=== PATIENT | female | born 1950 | race Caucasian/White ===

== ENCOUNTER → 2023-05-05 12:52 | Outpatient (REF) | payer OTHER, SELFPAY | LOC: DHCBC MAIN 12:52 | PROVIDERS: ATTENDING PHYSICIAN Internal Medicine Cardiovascular Disease; FAMILY PHYSICIAN Family Medicine | DX: R07.89 Other chest pain (principal); I25.84 Coronary atherosclerosis due to calcified coronary lesion; I77.1 Stricture of artery; R09.89 Other specified symptoms and signs involving the circulatory and respiratory systems | CPT/HCPCS: 93306 ==

== ENCOUNTER → 2023-05-17 09:50 | Outpatient (REF) | payer OTHER, SELFPAY | LOC: RAD 09:50 | PROVIDERS: ATTENDING PHYSICIAN Internal Medicine Cardiovascular Disease; FAMILY PHYSICIAN Family Medicine | DX: R07.89 Other chest pain (principal); I25.84 Coronary atherosclerosis due to calcified coronary lesion; I10 Essential (primary) hypertension | CPT/HCPCS: 75574; Q9967 ==

== ENCOUNTER → 2023-05-29 06:04 | Day surgery (SDC) | payer OTHER, SELFPAY ==
[2023-05-26 10:20] VITALS: BMI 27.2
[2023-05-26 10:52] LABS: % Basophils 0.9 % (0-2); % Eosinophils 1.8 % (0-6); % Immature Granulocytes 0.2 % (0-0.5); % Lymphocytes 26.8 % (20.5-51.1); % Monocytes 9.2 % (1.7-9.3); % Neutrophils 61.1 % (42.2-75.2); Absolute Eosinophils 0.1 10^3/uL (0-0.7); Absolute Lymphocytes 1.2 10^3/uL (1.2-3.4); Absolute Monocytes 0.4 10^3/uL (0.1-0.6); Absolute Neutrophils 2.7 10^3/uL (1.4-6.5); Hematocrit 45.1 % (37.0-47.0); Hemoglobin 15.4 g/dL (12.0-16.0); Mean Corp Hgb Conc. 34.1 g/dL (33.0-37.0); Mean Corpuscular Hgb 31.3 pg (27.0-31.0); Mean Corpuscular Volume 91.7 fL (81.0-99.0); Mean Platelet Volume 10.3 fL (7.4-10.4); Nucleated Red Blood Cells % 0 %; Platelet Count 195 10^3/uL (130-400); Red Blood Cell Count 4.92 10^6/uL (4.20-5.40); Red Cell Dist. Width 12.7 % (11.5-14.5); White Blood Cell Count 4.4 10^3/uL (4.8-10.8)
[2023-05-26 11:06] LABS: ALT (SGPT) 33 U/L (0-35); AST (SGOT) 45 U/L (14-36); Albumin 4.7 g/dl (3.5-5.0); Alkaline Phosphatase 100 U/L (38-126); Blood Urea Nitrogen 32 mg/dl (7-17); Calcium 9.9 mg/dl (8.4-10.2); Carbon Dioxide 27 mmol/L (22-30); Chloride 101 mmol/L (98-107); Estimated Creatinine Clearance 47 ml/min; Glucose 99 mg/dl (70-99); Potassium 4.4 mmol/L (3.5-5.1); Sodium 135 mmol/L (135-145); Total Protein 7.6 g/dl (6.3-8.2); eGFR 58.75
--- NOTE | 2023-05-26 11:07 | HPS.HSE ---
Family Physician
-
Family Physician: Dylan Rebollar MD
Chief Complaint
-
Exertional dyspnea. Coronary artery disease.
History of Present Illness
The patient is a 73 year old female presenting today for exertional angina. She describes episodes of 'burning' chest and neck pain, usually lasting less than 1 minute, primarily with walking up the stairs or climbing uphill. She is known
to have coronary artery calcifications and has been treated medically for her exertional angina with a daily baby Aspirin, Metoprolol, Zetia, Simvastatin, and Nitroglycerin as needed. She did undergo a coronary angiography CT on 05/17/2023 which did
raise concern for multivessel obstructive coronary artery disease. Given the results of this study and her ongoing symptoms, it is recommended she proceed with a left cardiac catheterization at this time. She denies any current complaints today such
as chest pain or shortness of breath at rest, palpitations, nausea, vomiting, diarrhea, lightheadedness, dizziness, cough, sore throat, or fever.
Medical History
Past Medical History
Past Medical History: Reports Other
Additional Past Medical History:
1. Exertional angina.
2. Coronary artery disease, on Aspirin.
3. Labile hypertension.
4. Hypercholesterolemia.
5. Left subclavian artery stenosis and occlusion of right vertebral artery, followed by vascular.
6. Mild aortic regurgitation.
7. Mild-moderate mitral regurgitation.
8. GERD.
8. History of recurrent H. Pylori.
9. Diverticulosis.
10. Vertigo.
11. Degenerative disc disease.
12. Sciatica.
13. Osteoarthritis, status post left total hip arthroplasty 2020.
14. COVID 12/2020, without residual side effects.
15. Mild leukopenia.
16. Mildly elevated AST.
Past Surgical History: Reports Other
Additional Past Surgical History:
1. Left total hip arthroplasty.
2. L5-S1 herniation repair x2.
3. x2.
4. Bilateral tubal ligation.
5. Rhinoplasty, septoplasty, chin implant.
6. Hammertoe correction.
7. Hand cyst excision.
8. Colonoscopy x5.
9. Endoscopy.
Social History
Tobacco: Non-smoker
Alcohol: Other (Drinks, on average, 1 glass of wine weekly. )
Personal:
Living: Other (She lives with her in a 2 story home. )
Family History
Family History: Not pertinent
Allergies / Home Medications
Allergy/Medication List:
Home medications:
1. Aspirin 81 mg p.o. daily.
2. Biotin 1 mg p.o. daily.
3. Calcium carbonate 750 mg p.o. every other day.
4. Benadryl 25-50 mg p.o. daily as needed.
5. Zetia 10 mg p.o. daily.
6. Glucosamine/chondroitin 1 tab p.o. daily.
7. Metoprolol Succinate 50 mg p.o. daily.
8. Multivitamin 1 tablet p.o. daily.
9. Naproxen sodium 220 mg p.o. twice a day as needed.
10. Nitroglycerin 0.4 mg sublingual every 5-15 minutes as needed (maximum of 3 doses).
11. Fish oil 1 capsule p.o. daily.
12. Simvastatin 40 mg p.o. daily.
13. Turmeric 500 mg p.o. daily.
14. Valsartan-HCTZ 80-12.5 mg p.o. daily.
15. Cholecalciferol 1000 units p.o. daily.
Allergies: Seasonal. No known drug allergies.
Review of Systems
-
A 12 point ROS was completed and negative except as noted: Yes
Physical Exam
Vital Signs
Blood pressure 156/69. Heart rate 80. Respirations 18. Pulse ox 98% on room air.
Height 5 feet, 4 inches. Weight 71.8 kg. BMI 27.2.
Physical Exam
General: Well Developed, Well Nourished and No Apparent Distress
HEENT: NormoCephalic, Moist mucous membranes, Atraumatic and PERRLA
Respiratory: Clear
Cardiac: Regular Rhythm and Murmur
GI: Soft, Non Tender and Non Distended
Musculoskeletal: Normal Gait & Station
Skin: Warm and Dry
Neuro: AO x 3 and Nonfocal/grossly intact
Laboratory Results
-
05/26/23 10:25
05/26/23 10:25
Laboratory Results
Total Bilirubin 1.0 mg/dl (0.2-1.3) 05/26/23 10:25
AST 45 U/L (14-36) H 05/26/23 10:25
ALT 33 U/L (0-35) 05/26/23 10:25
Alkaline Phosphatase 100 U/L (38-126) 05/26/23 10:25
EKG 05/26/2023: Normal sinus rhythm. Possible left atrial enlargement.
Echocardiogram 05/05/2023: Normal left ventricular size and systolic function. LV ejection fraction is 60-65%. Mild concentric left ventricular hypertrophy. Mild aortic regurgitation. Mild to moderate mitral regurgitation. No prior study available
for comparison.
Cardiac CT angiography 05/17/2023: Coronary calcium score 1,036. Dense calcified plaque in all three coronary territories. In some areas, the degree of calcification limits assessment of the coronary lumen. However, overall findings raise concern
for multivessel obstructive coronary artery disease. The ejection fraction is 65%.
Impression/Plan
-
IMPRESSION/PLAN:
1. Exertional angina and coronary artery disease: The patient is in need of a left cardiac catheterization with Dr. Bin Garcia on 05/29/2023. The benefits and risks of the procedure have been explained to the patient. The patient understands these
risks and wishes to proceed. She is aware to continue her baby Aspirin up to and including the day of her procedure.
[2023-05-29] VITALS (17 sets, daily range): BP systolic 96–172; BP diastolic 47–83; BMI 26.4
[2023-05-29] MEDS: NSS 209 ML IV (06:49)
--- NOTE | 2023-05-29 09:02 | ITS.CL.CATH ---
[facility] [employer] - Catheterization
Cardiac Catheterization
Procedure Report:
CARDIAC CATHETERIZATION REPORT
Date of Procedure: 05/29/2023
Referring: Dilia Reis M.D.
INDICATION: Exertional angina, abnormal CT coronary angiography.
PROCEDURE:
1. Left heart catheterization.
2. Coronary angiography.
3. Successful IFR of the proximal LAD.
ACCESS:
6 Kosovan right radial artery.
CATHETERS:
1. 5 Kosovan JR4.
2. 5 Kosovan JL 3.5.
3. 6 Kosovan EBU 3.5 guiding catheter.
HEMODYNAMIC DATA
Weight (kg): 69.4
AO (s/d/x, mmHg): 165/73/112
LV (s/x mmHg): 171/11
LEFT VENTRICULOGRAPHY: Not performed.
CORONARY ANGIOGRAPHY
Dominance: Right
Left Main: Normal size, bifurcating vessel. There is no coronary artery disease.
LAD: Normal size vessel giving rise to 1 large diagonal. There is a smooth, 50% lesion in the ostial/proximal LAD. There is a second, densely calcified 50% lesion in the more distal proximal LAD.
Ramus: Congenitally absent.
Circumflex: Large size, nondominant vessel giving rise to 2 obtuse marginals then terminating as a left posterolateral branch. There are minor luminal irregularities. All of the obtuse marginals and the LPL are severely tortuous.
RCA: Large size, dominant vessel. There is a densely calcified, 20-30% lesion in the mid RCA.
INTERVENTION(S)
1. Successful IFR of the tandem 50% LAD lesions, demonstrating nonocclusive disease (IFR = 0.92).
Narrative:
The decision was made to perform physiologic testing. The diagnostic catheter was removed over a wire and exchanged for a(n) 6 Kosovan EBU 3.5 guiding catheter. The guiding catheter was advanced into the ascending aorta and seated in the left main
coronary artery. Additional heparin was given to obtain an ACT greater than 250 seconds. An iFR wire was zeroed outside of the body, then inserted into the guiding sheath. The wire was advanced and the transducer was normalized just outside of the
guiding catheter tip. The wire was advanced into the mid LAD, beyond the origin of the first diagonal. Three iFR measurements were taken. The lesion was determined to be nonocclusive (0.92).
Closure Device: Vascular band.
Radiation (mGy): 428.27
DAP (cm2.Gy): 19.1056
Fluoroscopy time (minutes): 8.5
Sedation time (minutes): 41
CONCLUSIONS
1. Right dominant circulation with a densely calcified 20-30% mid RCA lesion and nonocclusive tandem, densely calcified 50% lesions in the proximal LAD (IFR = 0.92).
2. Normal filling pressures (LVEDP = 11 mmHg at 69.4 kg).
RECOMMENDATIONS:
1. Expectant management after cardiac catheterization via right radial approach.
2. Limited weight bearing on the right wrist for one week.
3. Continue risk factor modification.
4. Stable for outpatient cardiology follow-up.
Copy to: Dilia Reis M.D., Dylan Rebollar M.D.
Bin Garcia DO, FACC, FACP
[2023-05-29 10:05] LABS: ACT-LR - POC > 397 Seconds (116-155)
== END | disposition home or self-care (01) ==
LOC: CATH 06:04
PROVIDERS: ATTENDING PHYSICIAN Internal Medicine Cardiovascular Disease; FAMILY PHYSICIAN Family Medicine; OTHER PHYSICIAN Internal Medicine Cardiovascular Disease
DX: I25.118 Atherosclerotic heart disease of native coronary artery with other forms of angina pectoris (principal); I10 Essential (primary) hypertension; E78.00 Pure hypercholesterolemia, unspecified; I08.0 Rheumatic disorders of both mitral and aortic valves; K21.9 Gastro-esophageal reflux disease without esophagitis; Z79.82 Long term (current) use of aspirin
CPT/HCPCS: C1894; C1769; 36415; 80053; 85025; 85347; 93005; 93458; 93571; Q9967

== ENCOUNTER → 2024-02-13 09:57 | Outpatient (REF) | payer OTHER, SELFPAY | LOC: RAD 09:57 | PROVIDERS: ATTENDING PHYSICIAN Surgery Vascular Surgery; FAMILY PHYSICIAN Family Medicine | DX: I77.1 Stricture of artery (principal) | CPT/HCPCS: 93923; 93930 ==

== ENCOUNTER → 2024-08-21 13:45 | Outpatient (REF) | payer OTHER, SELFPAY | LOC: DHVS 13:45 | PROVIDERS: ATTENDING PHYSICIAN Registered Nurse; FAMILY PHYSICIAN Family Medicine; REFERRING PHYSICIAN Surgery Vascular Surgery | DX: I77.1 Stricture of artery (principal) | CPT/HCPCS: 93923; 93930 ==